=== PATIENT | female | born 1960 | race Caucasian/White ===

== ENCOUNTER → 2023-09-07 07:16 | Outpatient (REF) | payer OTHER, SELFPAY | LOC: RAD 07:16 | PROVIDERS: ATTENDING PHYSICIAN Physician Assistant | DX: M25.561 Pain in right knee (principal) | CPT/HCPCS: 73564 ==

== ENCOUNTER → 2023-09-22 07:15 | Outpatient (REF) | payer OTHER, SELFPAY | LOC: WDC 07:15 | PROVIDERS: ATTENDING PHYSICIAN Physician Assistant; FAMILY PHYSICIAN Family Medicine | DX: Z12.31 Encounter for screening mammogram for malignant neoplasm of breast (principal) | CPT/HCPCS: 77063; 77067 ==

== ENCOUNTER → 2023-10-07 16:01 | Outpatient (REF) | payer OTHER, SELFPAY | LOC: RAD 16:01 | PROVIDERS: ATTENDING PHYSICIAN Physician Assistant | DX: M25.561 Pain in right knee (principal) | CPT/HCPCS: 76882 ==

== ENCOUNTER 2023-11-11 09:51 | Outpatient (RCR) | payer OTHER, SELFPAY | END 2023-11-11 23:59 | disposition home or self-care (01) | LOC: RPT 09:51 | PROVIDERS: ATTENDING PHYSICIAN Physician Assistant | DX: M25.561 Pain in right knee (principal); G89.29 Other chronic pain; M54.2 Cervicalgia; Z73.6 Limitation of activities due to disability; M25.512 Pain in left shoulder; M25.511 Pain in right shoulder | CPT/HCPCS: 97110; 97162 ==

== ENCOUNTER 2023-12-14 15:48 | Outpatient (RCR) | payer OTHER, SELFPAY | END 2023-12-14 23:59 | disposition home or self-care (01) | LOC: RPT 15:48 | PROVIDERS: ATTENDING PHYSICIAN Physician Assistant | DX: M25.561 Pain in right knee (principal); M54.2 Cervicalgia; G89.29 Other chronic pain; Z73.6 Limitation of activities due to disability | CPT/HCPCS: 97010; 97110; 97530 ==

== ENCOUNTER 2023-12-30 15:52 | Outpatient (RCR) | payer OTHER, SELFPAY | END 2023-12-30 23:59 | disposition home or self-care (01) | LOC: RPT 15:52 | PROVIDERS: ATTENDING PHYSICIAN Physician Assistant | DX: M25.561 Pain in right knee (principal); M54.2 Cervicalgia; Z73.6 Limitation of activities due to disability; G89.29 Other chronic pain | CPT/HCPCS: 97010; 97110 ==

== ENCOUNTER → 2024-01-18 07:02 | Outpatient (REF) | payer OTHER, SELFPAY | LOC: PAVMRI 07:02 | PROVIDERS: ATTENDING PHYSICIAN Physician Assistant; FAMILY PHYSICIAN Family Medicine | DX: M25.561 Pain in right knee (principal); M25.461 Effusion, right knee; M25.60 Stiffness of unspecified joint, not elsewhere classified; R29.898 Other symptoms and signs involving the musculoskeletal system | CPT/HCPCS: 73721 ==

== ENCOUNTER 2024-02-18 06:31 | Day surgery (SDC) | payer OTHER, SELFPAY ==
[2024-02-04 09:26] LABS: Blood Urea Nitrogen 10 mg/dl (7-17); Calcium 9.4 mg/dl (8.4-10.2); Carbon Dioxide 26 mmol/L (22-30); Chloride 101 mmol/L (98-107); Glucose 90 mg/dl (70-99); Potassium 4.5 mmol/L (3.5-5.1); Sodium 137 mmol/L (135-145); eGFR > 60.00
[2024-02-04 13:03] VITALS: BMI 25.4
[2024-02-18 11:40] VITALS: BP 162/91
[2024-02-18 11:45] VITALS: BMI 25.4
[2024-02-18] MEDS: MOBIC 15 MG PO (12:07)
[2024-02-18] MEDS: TYLENOL 1000 MG PO (12:07)
[2024-02-18 14:17] VITALS: BP 145/91; BP 162/91
[2024-02-18 14:30] VITALS: BP 144/84
[2024-02-18 14:45] VITALS: BP 157/77
[2024-02-18 14:53] VITALS: BP 166/79
[2024-02-18 14:55] VITALS: BP 166/79
== END 2024-02-18 15:30 | disposition home or self-care (01) ==
LOC: SDS 06:31
PROVIDERS: ATTENDING PHYSICIAN Orthopaedic Surgery; FAMILY PHYSICIAN Physician Assistant
DX: S83.231A Complex tear of medial meniscus, current injury, right knee, initial encounter (principal); M25.561 Pain in right knee; X58.XXXA Exposure to other specified factors, initial encounter
CPT/HCPCS: 29881; 80048; 93005